=== PATIENT | male | born 1945 | race Caucasian/White ===

== ENCOUNTER 2020-12-29 10:39 | Outpatient (CLI) | payer MEDICARE | END 2020-12-29 23:59 | disposition home or self-care (01) | LOC: VAS 10:39 | PROVIDERS: ATTEND Thoracic Surgery (Cardiothoracic Vascular Surgery) | DX: I34.0 Nonrheumatic mitral (valve) insufficiency (principal); R60.9 Edema, unspecified | CPT/HCPCS: 93306; 93970 ==